=== PATIENT | male | born 1970 | race Hispanic/Latino ===

== ENCOUNTER 2020-10-23 20:46 | Emergency (ER) | payer SELFPAY ==
[~2020-10-23] VITALS: Ht 177.8 cm; Wt 83.9 kg
[~2020-10-23 20:46] MED LIST: IBUPROFEN; [UNRECOGNIZED DRUG - OTHER]
[2020-10-23] MEDS ORDERED: HYDROCODONE/APAP 5MG-325MG TAB PO STA (23:20)
[2020-10-23] MEDS ORDERED: AZITHROMYCIN 250 MG TAB PO STA (23:20)
[2020-10-23] MEDS ORDERED: PREDNISONE 20 MG TAB PO STA (23:20)
== END 2020-10-24 00:35 | disposition home or self-care (01) ==
LOC: ER 20:54
DX: R51.9 Headache, unspecified (principal)
CPT/HCPCS: 70450; 99283; J7512